=== PATIENT | female | born 1975 | race Two or more races ===

== ENCOUNTER 2019-05-28 11:07 | Emergency (ER) | payer SELFPAY ==
[~2019-05-28] VITALS: Ht 170.2 cm; Wt 72.6 kg
[2019-05-28 12:03] LABS: Basophils # (auto) 0 uL; Basophils % (auto) 0.3 % (0.0-2.0); Eosinophils # (auto) 0 uL; Eosinophils % (auto) 0.3 % (0.0-7.0); Hematocrit 40.7 % (36.0-46.0); Hemoglobin 13.5 g/dL (12.2-16.2); Lymphocytes # (auto) 1.8 uL; Lymphocytes % (auto) 16.7 % (10.0-50.0); Mean Corpuscular Hemoglobin 29.3 pg (28.0-32.0); Mean Corpuscular Hgb Conc. 33.1 g/dL (32.0-36.0); Mean Corpuscular Volume 88.4 fL (80.0-100.0); Monocytes # (auto) 0.6 uL; Monocytes % (auto) 5.8 % (0.0-12.0); Neutrophils # (auto) 8.5 uL; Neutrophils % (auto) 76.9 % (37.0-80.0); Nucleated Red Blood Cells % 0.1 %; Platelet Count (auto) 219 10^3/uL (140-450); Red Cell Distribution Width 14.4 % (11.8-14.3)
[2019-05-28 12:20] LABS: INR 0.99 (0.9-1.15); Partial Thromboplastin Time 25.6 sec (23.64-32.05)
[2019-05-28 12:25] LABS: Acetaminophen < 2.0 ug/mL (10-30); Salicylate < 1.7 mg/dL (2.8-20.0)
[2019-05-28 12:26] LABS: Albumin 3.6 g/dL (3.4-5.0); Anion Gap 3 (5-15); Blood Alcohol < 3.0 mg/dL (0-5); Blood Urea Nitrogen 13 mg/dL (7-18); Calcium 8.7 mg/dL (8.5-10.1); Carbon Dioxide 28 mmol/L (21-32); Chloride 108 mmol/L (98-107); Glucose 94 mg/dL (74-106); Potassium 3.8 mmol/L (3.5-5.1); Sodium 139 mmol/L (136-145)
[2019-05-28 12:32] LABS: Alanine Aminotransferase 23 U/L (13-56); Alkaline Phosphatase 78 U/L (45-117); Aspartate Aminotransferase 10 U/L (15-37); BUN/Creatinine Ratio 19.4; Bilirubin, Total 0.7 mg/dL (0.2-1.0); Creatine Kinase IFCC 37 U/L (26-192); GFR African American 122 mL/min; GFR Non-African American 101 mL/min
[2019-05-28 13:21] LABS: Urine Pregnacy Test Negative (Negative)
[2019-05-28 13:22] LABS: Urine Bacteria NONE SEEN /hpf (None Seen); Urine Blood Negative /uL (Negative); Urine Mucus FEW (None Seen); Urine WBC 1 /hpf (0 - 5)
[2019-05-28 13:35] LABS: Alcohol, Urine < 3.0 mg/dL (0-5); Amphetamine Screen, Urine POSITIVE (NEGATIVE); Barbiturate Scree,Urine NEGATIVE (NEGATIVE); Benzodiazephine Screen, Urine POSITIVE (NEGATIVE); Cannabinoid Screen, Urine NEGATIVE (NEGATIVE); Cocaine Screen, Urine NEGATIVE (NEGATIVE); Opiate Scree,Urine NEGATIVE (NEGATIVE); Phencyclidine Screen, Urine NEGATIVE (NEGATIVE)
[2019-05-28 14:57] VITALS: BP 110/55
== END 2019-05-28 16:32 | disposition home or self-care (01) ==
LOC: ER 11:07
DX: M25.512 Pain in left shoulder (principal); M47.894 Other spondylosis, thoracic region; F41.9 Anxiety disorder, unspecified
CPT/HCPCS: 36415; 72125; 72128; 80053; 80307; 80320; 80329; 81001; 81025; 82550; 84484; 85025; 85610; 85730; 93005